=== PATIENT | female | born 1945 | race Caucasian/White ===

== ENCOUNTER 2020-05-10 02:59 | Inpatient (IN) | payer MEDICARE, OTHER ==
[2020-05-10] VITALS (10 sets, daily range): BP systolic 109–149; BP diastolic 62–111; PULSE 68–140; TEMP 97.5–99
[~2020-05-10] VITALS: Ht 162.6 cm; Wt 72.7 kg
[~2020-05-10 02:59] MED LIST: CLINDAMYCIN300 MG PO; NO HOME MEDICATIONS
[2020-05-10 03:26] LABS: BASO # 0.1 (0.0-0.2); BASO % 1.4 % (0.0-2.0); EOS # 0.3 (0.0-0.7); EOS % 3.7 % (0-4.0); GRAN # 4.5 (1.4-6.5); GRAN % 61.2 % (42.2-75.2); HEMATOCRIT 43.3 % (37.0-47.0); HEMOGLOBIN 14.4 g/dl (12.5-16.0); LYMPH % 26.4 % (20.0-51.0); MEAN CELL VOLUME 98 fl (80.0-100.0); MEAN CORPUSCULAR HEMOGLOBIN 33 pg (27.0-31.0); MEAN CORPUSCULAR HGB CONC 33 g/dl (33.0-37.0); MEAN PLATELET VOLUME 11.1 fl (7.4-10.4); MONO # 0.5 (0.1-0.6); MONO % 6.9 % (1.7-9.3); PLATELET COUNT 174 K/mm3 (130-400); RED BLOOD COUNT 4.42 M/mm3 (4.10-5.30); REDCELL DISTRIBUTION WIDTH-CV 13.9 % (11.5-14.5)
[2020-05-10] MEDS ORDERED: FENTANYL 50MCG TD (03:26)
[2020-05-10 03:40] LABS: ALBUMIN 4.1 gm/dL (3.5-5.0); BILIRUBIN,TOTAL 0.6 mg/dL (0.0-1.0); CALCIUM 8.4 mg/dL (8.4-10.2); CREATININE, serum 0.73 (0.52-1.25); POTASSIUM 3.6 mmol/L (3.4-5.0); TOTAL PROTEIN 6.5 gm/dL (6.4-8.2)
[2020-05-10 03:50] LABS: INR 0.9 (0.8-3.0); PROTHROMBIN TIME 10.1 SECONDS (9.7-12.8)
[2020-05-10] MEDS ORDERED: LOMOTIL 0.025 M1 TAB PO (05:56)
[2020-05-10 06:24] LABS: MAGNESIUM 2.1 mg/dL (1.6-2.3)
[2020-05-10 06:30] LABS: PRE ALBUMIN 23.6 mg/dL (17.6-36.0)
--- NOTE | 2020-05-10 07:33 | NUR ---
NOTIFIED OF ORTHO CONSULT.
--- NOTE | 2020-05-10 12:00 | NUR ---
BLOOD SUGAR CHECKED DUE TO IVF RUNNING AT 200ML/HR WITH DEXTROSE 5% WITH 0.45% NS. RATE DECREASED TO 75ML/HR PER ORDERS. BLOOD GLUCOSE CHECKED, BS:171. NOTIFIED. IVF ORDERS CHANGED.
--- NOTE | 2020-05-10 12:12 | NUR ---
TELEMETRY CALLED AND REPORTED THAT THE PATIENT CONVERTED INTO NORMAL SINUS RHYTHM.
--- NOTE | 2020-05-10 13:40 | NUR ---
16 UKRAINIAN BARR CATHETER INSERTED VIA STERILE TECHNIQUE. 10ML BALLOON INFLATED. STAT LOCK TO LEFT THIGH. APPROXIMATELY 350MLS OF BLOOD-TINGED, YELLOW RETURNED IMMEDIATELY. URINE SPECIMEN COLLECTED AND SENT TO LAB.
[2020-05-10 13:51] LABS: COLLECTION METHOD CLEAN CATCH
[2020-05-10 14:21] LABS: TRICYCLIC ANTIDEPRESS URINE NEGATIVE
[2020-05-10 14:27] LABS: MUCOUS Present /lpf; PH 5 (5-8); SQUAMOUS EPITHELIAL None Seen /hpf; URINE APPEARANCE Hazy; URINE BACTERIA None Seen /hpf; URINE BILIRUBIN Negative (NEGATIVE); URINE BLOOD 2+ (NEGATIVE); URINE CALCIUM OXALATE CRYSTAL Present /hpf; URINE COLOR Yellow; URINE GLUCOSE Negative (NEGATIVE); URINE KETONE 1+ (NEGATIVE); URINE LEUKOCYTE ESTERASE Negative (NEGATIVE); URINE NITRATE Negative (NEGATIVE); URINE PROTEIN(semi-quant) Negative (NEGATIVE)
--- NOTE | 2020-05-10 14:27 | NUR ---
Dispatch Manager met with the patient to complete intake. The patient lives in [place] with her daughter, Brinda. The patient moved to [place] in January from [place], [place]. The patient has two walkers and is independent. The patient's PCP is listed as Dr. Rebolledo but the patient states she has not yet seen him. The patient receives medications via mail from [email or web address] or [employer]. The patient does not have advanced directives in the EMR but they are complete. The patient's daughter Brinda emailed copy and placed in the chart. The patient will likely be needing post acute rehab at discharge. KIM discussed Medicare.gov options for SNF in [place]. The first choice is [facility] and second choice is [facility]. Referrals sent and facilities notified. KIM contacted Brinda and she was in agreeance with the plan. KIM collaborated the above information with the patient's nurse.
--- NOTE | 2020-05-10 17:03 | NUR ---
LEONARD OHARA CALLED AND NOTIFIED THAT THE PATIENT IS BACK IN A.FIB IN THE 130'S. NO ORDERS GIVEN AT THIS TIME.
--- NOTE | 2020-05-10 18:32 | NUR ---
PATIENT PROVIDED WITH PRN IV PAIN MEDICATIONS AND IV ATIVAN FOR DETOX PER PROTOCOL. PATIENT REFUSING EWELINA HOSE AND SCD'S. PATIENT ALLOWS FOR SOME INTERMITTENT REPOSITIONING THROUGHOUT THE DAY. PATIENT CURRENTLY RESTING IN BED AT THIS TIME. BARR TO DEPENDENT DRAINAGE. WILL REPORT OFF TO ONCOMING NURSE.
[2020-05-10] MEDS ORDERED: B-121000 MCG PO (19:50)
[2020-05-10] MEDS ORDERED: THERAGRAN TAB1 UDTAB PO (19:50)
[2020-05-10] MEDS ORDERED: VITAMIN D 400400 IU PO (19:51)
--- NOTE | 2020-05-10 20:00 | NUR ---
Report received, assumed care for mini shifter. Assessment complete. A&O to self-knows is currently in hospital but unaware of where or time frame. Very uncooperative with positioning-will not allow pillow support for right lower extremity-refused SCDs/TEDs/Ice. Rivas cath with clear yellow urine. 1/2NS@75mls/hr to right forearm IV. Detox protocol with evaluation q2h. Denies current needs. Call light in reach. Bed alarm on. Will monitor.
--- NOTE | 2020-05-10 20:02 | NUR ---
certified technician specialist notified this nurse of elevated HR-currently in A FIB. Vitals WNL. Denies chest pain/shortness of breath. Received ativan and pain meds at 1915. Hospitalist notified-no new orders received.
--- NOTE | 2020-05-10 20:15 | NUR ---
PATIENT ADMISSION INFORMATION, MED REC, ALLERGIES AND PHARMACY REVIEWED WITH PATIENTS DAUGHTER AND DPOA.
[2020-05-11] VITALS (196 sets, daily range): BP systolic 76–125; BP diastolic 50–78; PULSE 36–108; TEMP 97.8–98.8; O2SAT 88–98
--- NOTE | 2020-05-11 04:00 | NUR ---
During detox protocol vitals patient will cry out "it hurts it hurst" but immediately falls back to sleep. Did allow for some repositioning with pillow support but refused ice. Call light in reach/bed alarm on. Will monitor.
--- NOTE | 2020-05-11 05:00 | NUR ---
Rested well after IV medication for pain. Did receive ativan for detox protocol-scoring 5-8. Rivas cath draining dark yellow clear urine. 1/2NS@75ml/hr to right forearm IV. Has been NPO since midnight. Call light in reach. Will monitor.
[2020-05-11 06:41] LABS: BASO # 0.1 (0.0-0.2); BASO % 0.4 % (0.0-2.0); EOS # 0.1 (0.0-0.7); EOS % 0.6 % (0-4.0); GRAN # 8.3 (1.4-6.5); GRAN % 71.5 % (42.2-75.2); LYMPH # 2.1 (1.2-3.4); LYMPH % 17.6 % (20.0-51.0); MEAN CELL VOLUME 98 fl (80.0-100.0); MEAN CORPUSCULAR HGB CONC 34 g/dl (33.0-37.0); MONO # 1.1 (0.1-0.6); MONO % 9.1 % (1.7-9.3); PLATELET COUNT 139 K/mm3 (130-400); RED BLOOD COUNT 3.66 M/mm3 (4.10-5.30); REDCELL DISTRIBUTION WIDTH-CV 13.4 % (11.5-14.5)
[2020-05-11 06:49] LABS: HEMATOCRIT 35.9 % (37.0-47.0); MEAN CORPUSCULAR HEMOGLOBIN 33 pg (27.0-31.0)
[2020-05-11 06:50] LABS: HEMOGLOBIN 12.1 g/dl (12.5-16.0)
--- NOTE | 2020-05-11 06:55 | NUR ---
appears to be dozing, bedside shift report recevied from Oksana RN
[2020-05-11 06:56] LABS: ALBUMIN 3.4 gm/dL (3.5-5.0); BILIRUBIN,TOTAL 1.8 mg/dL (0.0-1.0); CALCIUM 8.2 mg/dL (8.4-10.2); CREATININE, serum 0.53 (0.52-1.25); POTASSIUM 3.7 mmol/L (3.4-5.0); TOTAL PROTEIN 5.6 gm/dL (6.4-8.2)
--- NOTE | 2020-05-11 08:20 | NUR ---
c/o pain medicated with dilaudid 0.25mg slow IV
--- NOTE | 2020-05-11 09:32 | NUR ---
appears more comfortable since given dilaudid, full assessment completed, see interventions for further info, awakens easily but goes back to sleep quickly
--- NOTE | 2020-05-11 10:30 | NUR ---
preop bath given, c/o and medicated with dilaudid 0/25mg slow IV, rests well after dilaudid given
--- NOTE | 2020-05-11 11:24 | NUR ---
consent signed for surgery, prepped for surgery,
--- NOTE | 2020-05-11 11:40 | NUR ---
to surgery per bed, report called to TISHA Saha
--- NOTE | 2020-05-11 12:00 | NUR ---
spoke with daughter Brinda and informed her the patient just went to surgery and she is in agreement with this,
[2020-05-11 12:41] LABS: CREATININE, serum 0.67 (0.52-1.25); POTASSIUM 4.5 mmol/L (3.4-5.0)
--- NOTE | 2020-05-11 12:52 | NUR ---
settlement technician called to report patient's heart rate in the high 30s to low 40s, informed her the patient was in surgery, I then called the charge nurse in surgery and informed her, she states the WASHER AND CRUSHER TENDER and other nurse is with the patient at this time
--- NOTE | 2020-05-11 13:23 | NUR ---
LEONARD Buchanan and Dr Collazo notified of patient's heart rate in the 30s and they have taken her back to surgery, given phone number of surgery charge nurse if they have questions
--- NOTE | 2020-05-11 16:25 | NUR ---
she remains off unit in surgery/pacu
--- NOTE | 2020-05-11 16:30 | NUR ---
Patient arrives to icu room 3 from pacu. She wakes to movement and to her name. she complains of brief discomfort when moved to icu bed.bp wnl. hr melissa in 30s.
--- NOTE | 2020-05-11 16:50 | NUR ---
report given to MARY Cristina in ICU
--- NOTE | 2020-05-11 17:15 | NUR ---
Update given to daughter, Brinda.
--- NOTE | 2020-05-11 19:30 | NUR ---
Report given to MARY Saha
--- NOTE | 2020-05-11 20:00 | NUR ---
Discussed patient's care with patient's daughter. Daughter is upset that no physician has updated her on her mothers condition. She was also not notified that her mother had been transfered down to the unit. Requested that the barrel loader speak with her tomorrow about the plan of care. Ensured that we had her number and will pass it on to the day shift nurse. Daughter was pleased with current care plan at this time. Also reported that [place] is listed as an allergy for her mom and causes "nausea" Daughter stated that she took norco over 20 yrs ago and it was just not effective, but did not cause any adverse reactions. . Has a current order for norco and requested that we try that if patient is ok with it. All other questions and concerns addressed at this time.
--- NOTE | 2020-05-11 20:00 | NUR ---
Patient crying outloud and moaning frequently saying "ow ow ow" and it hurts, while holding her right hip. PRN pain medication administered.
--- NOTE | 2020-05-11 23:08 | NUR ---
Resting comfortably at this time. VS stable. Call light within reach; Will continue to monitor.
[2020-05-12] VITALS (282 sets, daily range): BP systolic 96–128; BP diastolic 52–75; PULSE 56–77; TEMP 97.1–98.2; O2SAT 56–100
[2020-05-12 00:40] LABS: CALCIUM 8.1 mg/dL (8.4-10.2); CREATININE, serum 0.77 (0.52-1.25); POTASSIUM 4.4 mmol/L (3.4-5.0)
--- NOTE | 2020-05-12 05:10 | NUR ---
Patient resting in bed; RT at bedside to perfrom ECG. 02 89 on 4L oxymask. Instructed patient to try to remember to take a several good deep breaths and cough several times an hour to help prevent pneumonia. Patient agreeable with this. 02 increased to 6L at this time.
[2020-05-12 05:23] LABS: BASO % 0.1 % (0.0-2.0); GRAN # 7.3 (1.4-6.5); GRAN % 84.8 % (42.2-75.2); LYMPH # 0.8 (1.2-3.4); LYMPH % 9.6 % (20.0-51.0); MEAN CELL VOLUME 99 fl (80.0-100.0); MEAN CORPUSCULAR HGB CONC 33 g/dl (33.0-37.0); MEAN PLATELET VOLUME 12.7 fl (7.4-10.4); MONO # 0.4 (0.1-0.6); MONO % 4.6 % (1.7-9.3); PLATELET COUNT 98 K/mm3 (130-400); RED BLOOD COUNT 2.95 M/mm3 (4.10-5.30); REDCELL DISTRIBUTION WIDTH-CV 13.6 % (11.5-14.5)
[2020-05-12 05:25] LABS: HEMATOCRIT 29.2 % (37.0-47.0); HEMOGLOBIN 9.7 g/dl (12.5-16.0); MEAN CORPUSCULAR HEMOGLOBIN 33 pg (27.0-31.0)
[2020-05-12 05:37] LABS: ALBUMIN 2.8 gm/dL (3.5-5.0); CREATININE, serum 0.7 (0.52-1.25); POTASSIUM 4.1 mmol/L (3.4-5.0); TOTAL PROTEIN 5.1 gm/dL (6.4-8.2)
--- NOTE | 2020-05-12 11:25 | NUR ---
The patient was transferred to ICU after surgery yesterday. The patient is to transfer back up to the surgical floor today. KIM contacted and updated the patient's daughter, Siobhan. Siobhan is agreeable to the d/c plan of post-acute rehab and [facility]. KIM discussed Medicaid. Siobhan reports that she would be interested in getting the patient applied for Medicaid while she is here. KIM consulted Financial Counselor, Garima. KIM contacted and faxed updates to Deena at [facility].
--- NOTE | 2020-05-12 16:22 | NUR ---
A Medicaid application was completed. Garima, Financial Counselor, reports that she needs Release of Information Forms signed. KIM met with the patient and presented the forms. The patient signed the forms and SW emailed the signed forms back to Financial Counseling.
--- NOTE | 2020-05-12 18:41 | NUR ---
RECEIVED CHANGE OF SHIFT REPORT FROM DAY SHIFT NURSE.
--- NOTE | 2020-05-12 21:40 | NUR ---
PATIENT STILL COMPLAINING OF RIGHT HIP AFTER TAKING PAIN PILL WHILE BEING TURNED FOR INCONTINENT CARE WITH LOOSE STOOL, SEE eMAR FOR MS GIVEN IV.
[2020-05-13 03:26] VITALS: BP 104/58; PULSE 70; TEMP 98.2
--- NOTE | 2020-05-13 05:42 | NUR ---
PATIENT PLACED AND TAKEN OFF BED PAIN, PASSED FLATUS. PATIENT ABLE TO TURN ONTO TO RIGHT SIDE WHEN PATIENT TURNS ONTO SIDE HERSELF.
--- NOTE | 2020-05-13 07:20 | NUR ---
awake resting in bed, bedside shift report received from MARY Miller, placed on bedpan per her request to have a bowel movement
[2020-05-13 07:57] LABS: MEAN CELL VOLUME 98 fl (80.0-100.0); MEAN CORPUSCULAR HGB CONC 33 g/dl (33.0-37.0); MEAN PLATELET VOLUME 13.1 fl (7.4-10.4); PLATELET COUNT 136 K/mm3 (130-400); RED BLOOD COUNT 2.98 M/mm3 (4.10-5.30); REDCELL DISTRIBUTION WIDTH-CV 13.8 % (11.5-14.5)
[2020-05-13 08:00] LABS: BILIRUBIN,TOTAL 0.7 mg/dL (0.0-1.0); CALCIUM 8.3 mg/dL (8.4-10.2); CREATININE, serum 0.68 (0.52-1.25); MAGNESIUM 2.1 mg/dL (1.6-2.3); POTASSIUM 4.3 mmol/L (3.4-5.0); TOTAL PROTEIN 5.4 gm/dL (6.4-8.2)
[2020-05-13 08:04] LABS: HEMATOCRIT 29.3 % (37.0-47.0); HEMOGLOBIN 9.6 g/dl (12.5-16.0); MEAN CORPUSCULAR HEMOGLOBIN 32 pg (27.0-31.0)
[2020-05-13 08:10] VITALS: BP 122/61; PULSE 66; TEMP 97.7
[2020-05-13 08:21] LABS: LYMPHOCYTE 7 % (20.0-51.0); NEUTROPHILS 89 % (42.0-75.2); PLATELET ESTIMATE NORMAL (NORMAL); SCHISTOCYTES 1+
[2020-05-13 08:22] LABS: HYPOCHROMIA 1+
--- NOTE | 2020-05-13 09:26 | NUR ---
Patient refused her nicotine patch. States she does not care for them. Resting in bed watching tv with call light in reach for use. Able to make needs and wishes known. Denies need for anything at this time.
[2020-05-13 10:30] VITALS: BP 128/66; PULSE 61; TEMP 97.5
--- NOTE | 2020-05-13 11:15 | NUR ---
physical therapy in to work with patient and assisted out of bed and up into recliner
--- NOTE | 2020-05-13 11:28 | NUR ---
Deena from [facility] reports they can accept the patient for post acute rehab. Deena wanted to ensure the patient was able to void after amezcua get taken out. KIM staffed with nurse regarding the above. Nurse states that the patient started Sotalol this day and will need to stay for monitoring for three days. KIM informed Deena and faxed updates.
--- NOTE | 2020-05-13 13:08 | NUR ---
Patients indwelling catheter DC at 1015. Denies need for anything at this timew. Call light in reach for use.
--- NOTE | 2020-05-13 13:21 | NUR ---
bedside shift report given to MARY Marroquin
[2020-05-13 15:33] VITALS: BP 118/68; PULSE 59; TEMP 98.7
--- NOTE | 2020-05-13 18:25 | NUR ---
Patient c/o pain to her right hip 12/17. PRN [place] given at 14:52 pm for pain. Patient has been using bed guerra x2 to void this afternoon. Patient's daughter in the room around 1800. Update provided to patient's daughter. All the questions answered and concerns addressed. Will give report to warehouse shift supervisor nurse.
[2020-05-13 19:37] VITALS: BP 112/58; PULSE 58; TEMP 98.5
--- NOTE | 2020-05-13 21:20 | NUR ---
HS MEDS GIVEN WITH NORCO 2 TABS PO FOR PAIN 12/17. PT USING BEDPAN FOR VOIDING AND STOOL. IS ALERT, CRANKY AT STAFF. SL TO LEFT HAND FLUSHED WITHOUT PROBLEM.
[2020-05-14 00:22] VITALS: BP 11/50; BP 111/50; PULSE 58; TEMP 98.1
--- NOTE | 2020-05-14 01:38 | NUR ---
PT REPORTS PAIN 9/10 TO RIGHT HIP. MEDICATED WITH NORCO 5/325 (2) TABS PO AT THIS TIME WITH TRAMADOL 100MG PO.
[2020-05-14 04:35] VITALS: BP 119/58; PULSE 80; TEMP 97.6
--- NOTE | 2020-05-14 05:09 | NUR ---
MEDICATED WITH LOMOTIL FOR DIARRHEA AND NORCO 2 TABS PO FOR PAIN TO RIGHT HIP. PT ASKING FOR FENTANYL PATCH, ANAND LOCK CONTACTED, SHE REFERRED TO DAYSHIFT DOCTORS.
[2020-05-14 06:55] LABS: BASO % 0.1 % (0.0-2.0); EOS % 0.2 % (0-4.0); GRAN # 9.8 (1.4-6.5); GRAN % 73.7 % (42.2-75.2); LYMPH # 2.2 (1.2-3.4); LYMPH % 16.4 % (20.0-51.0); MEAN CELL VOLUME 100 fl (80.0-100.0); MEAN CORPUSCULAR HGB CONC 32 g/dl (33.0-37.0); MEAN PLATELET VOLUME 12.3 fl (7.4-10.4); MONO # 1.1 (0.1-0.6); MONO % 8.4 % (1.7-9.3); PLATELET COUNT 168 K/mm3 (130-400); RED BLOOD COUNT 2.87 M/mm3 (4.10-5.30)
[2020-05-14 07:02] LABS: HEMATOCRIT 28.6 % (37.0-47.0); HEMOGLOBIN 9.2 g/dl (12.5-16.0); MEAN CORPUSCULAR HEMOGLOBIN 32 pg (27.0-31.0)
[2020-05-14 07:02] LABS: CALCIUM 8.3 mg/dL (8.4-10.2); CREATININE, serum 0.8 (0.52-1.25); POTASSIUM 3.8 mmol/L (3.4-5.0)
[2020-05-14] MEDS ORDERED: NICODERM C21 MG/PATC TD (07:22)
[2020-05-14] MEDS ORDERED: XARELTO15 MG PO (07:23)
[2020-05-14] MEDS ORDERED: TYLENOL 325MG325 MG PO (07:23)
[2020-05-14] MEDS ORDERED: VITAMIN C500 MG PO (07:24)
[2020-05-14] MEDS ORDERED: THIAMINE 1100 MG/TAB PO (07:24)
[2020-05-14] MEDS ORDERED: SENOKOT S 50 MG1 TAB PO (07:24)
[2020-05-14] MEDS ORDERED: OSCAL 500 TAB500 MG PO (07:24)
[2020-05-14] MEDS ORDERED: FOLIC ACID 11 MG/TA1 PO (07:24)
--- NOTE | 2020-05-14 08:12 | NUR ---
Patient resting in bed. Awake & alert. She states she absolutely will not be doing therapy today because she did not sleep last night. I touched base with Chanel Veronica about patient requesting her fentynal patch. I reviewed with patient that is a very controlled substance, physicans have to research what is best pain medication for her prior to giving that. Patient on potassium protocol, refuses K+ in orange juice reports she is allergic to fruits and vegtables. Student nurse assisting in care. Patient wanting staff to know her name is NAHUN BRIZUELA. NOT NAHUN & NOT CHATA. Ekg done this am Qtc less that 500. Vss, coughing & deep breathing encouraged. Right hip dressing CDI. Ortho rounded this am
[2020-05-14 08:42] VITALS: BP 125/58; PULSE 56; TEMP 97.9
--- NOTE | 2020-05-14 09:29 | NUR ---
Hospitalist rounded. Plan of care reviewed. Patient is very hard of hearing making communication difficult at times. Fentynal patch per orders resumed. Patient thankful
[2020-05-14] MEDS ORDERED: BETAPACE 80MG80 MG PO (11:54)
[2020-05-14 12:15] VITALS: BP 131/58; PULSE 68; TEMP 98
--- NOTE | 2020-05-14 13:33 | NUR ---
Patient resting in bed watching tv. Able to make needs and wishes known. Denies need for anything at this time. call light in reach for use.
[2020-05-14 13:53] VITALS: BP 131/58; PULSE 68; TEMP 98
[2020-05-14] MEDS ORDERED: NORCO 325 MG-51 TAB PO (13:56)
[2020-05-14] MEDS ORDERED: FERROUS SU325 MG/TAB PO (13:57)
[2020-05-14] MEDS ORDERED: FENTANYL 50MCG TD (13:58)
--- NOTE | 2020-05-14 14:28 | NUR ---
Patient ready for discharge. Patient dressed in fresh hospital clothing & hygiene provided. Patient was up to bedside commode & had a loose Bm & voided. Patient daughter aware of plan of care, social service manager talked to her. Patietn belongings packed.
--- NOTE | 2020-05-14 15:04 | NUR ---
PATIENT TRANSFERED TO [facility]. REPORT CALLED TO NURSE AT [facility], ALL QUESTIONS ANSWERED.
--- NOTE | 2020-05-14 16:08 | NUR ---
Cardiology cleared the patient for discharge. The patient discharged today, 05/14 to [facility] for post acute rehab. Discharge orders faxed. The patient, team, and the patient's daughter were in agreeance. The patient will be transported at 1430. There are no additional needs.
== END 2020-05-14 15:05 | DRG 480 ==
LOC: COL.ER 02:59 → SURG 03:58 → ICU 03:58 → SURG 03:59 → ICU 05-11 16:30 → SURG 05-12 18:30
PROVIDERS: Emergency Medicine; Family Medicine; Nurse Practitioner Family; Orthopaedic Surgery; Physician Assistant; ADMIT Internal Medicine
PROC: 0QS60ZZ Reposition Right Upper Femur, Open Approach (ICD-10-PCS; principal; 2020-05-11 14:45)
DX: S72.141A Displaced intertrochanteric fracture of right femur, initial encounter for closed fracture (principal); J96.01 Acute respiratory failure with hypoxia; E87.1 Hypo-osmolality and hyponatremia; I48.91 Unspecified atrial fibrillation; I95.81 Postprocedural hypotension; J44.9 Chronic obstructive pulmonary disease, unspecified; D64.9 Anemia, unspecified; F10.129 Alcohol abuse with intoxication, unspecified; T44.7X5A Adverse effect of beta-adrenoreceptor antagonists, initial encounter; T46.1X5A Adverse effect of calcium-channel blockers, initial encounter; R00.1 Bradycardia, unspecified; R74.01 Elevation of levels of liver transaminase levels; Z20.828 Contact with and (suspected) exposure to other viral communicable diseases; G89.29 Other chronic pain; M54.9 Dorsalgia, unspecified; F17.210 Nicotine dependence, cigarettes, uncomplicated; Z90.710 Acquired absence of both cervix and uterus; Z85.41 Personal history of malignant neoplasm of cervix uteri
CPT/HCPCS: 99223-AI; 99232-AI; 99233-AI; 99239; A9284; C1713; C1769; J0690; J1100; J1170; J1650; J2060; J2250; J2270; J2405; J2704; J3010; J3411; J3480; J7030; J7512

== ENCOUNTER → 2020-05-24 | Outpatient (REF) ==
[~2020-05-24] MED LIST changes: +B-121000 MCG PO; +BETAPACE 80MG80 MG PO; +FENTANYL 50MCG TD; +FERROUS SU325 MG/TAB PO; +FOLIC ACID 11 MG/TA1 PO; +LOMOTIL 0.025 M1 TAB PO; +NICODERM C21 MG/PATC TD; +NORCO 325 MG-51 TAB PO; +OSCAL 500 TAB500 MG PO; +SENOKOT S 50 MG1 TAB PO; +THERAGRAN TAB1 UDTAB PO; +THIAMINE 1100 MG/TAB PO; +TYLENOL 325MG325 MG PO; +VITAMIN C500 MG PO; +VITAMIN D 400400 IU PO; +XARELTO15 MG PO
[2020-05-24 10:37] LABS: BASO # 0.1 (0.0-0.2); BASO % 0.7 % (0.0-2.0); EOS # 0.2 (0.0-0.7); EOS % 1.7 % (0-4.0); GRAN # 7.9 (1.4-6.5); GRAN % 72.5 % (42.2-75.2); HEMOGLOBIN 10.3 g/dl (12.5-16.0); LYMPH # 1.8 (1.2-3.4); LYMPH % 16.1 % (20.0-51.0); MEAN CELL VOLUME 101 fl (80.0-100.0); MEAN CORPUSCULAR HEMOGLOBIN 32 pg (27.0-31.0); MEAN CORPUSCULAR HGB CONC 32 g/dl (33.0-37.0); MEAN PLATELET VOLUME 10.2 fl (7.4-10.4); MONO # 0.9 (0.1-0.6); MONO % 8.3 % (1.7-9.3); PLATELET COUNT 593 K/mm3 (130-400); RED BLOOD COUNT 3.23 M/mm3 (4.10-5.30); REDCELL DISTRIBUTION WIDTH-CV 15.2 % (11.5-14.5)
[2020-05-24 10:39] LABS: HEMATOCRIT 32.6 % (37.0-47.0)
[2020-05-24 10:40] LABS: CALCIUM 9.5 mg/dL (8.4-10.2); CREATININE, serum 0.64 (0.52-1.25); POTASSIUM 4.3 mmol/L (3.4-5.0)
== END ==
LOC: ZCOL.LAB 10:08
PROVIDERS: Internal Medicine
DX: Z51.89 Encounter for other specified aftercare (principal); R79.89 Other specified abnormal findings of blood chemistry; R68.89 Other general symptoms and signs

== ENCOUNTER 2020-05-31 20:40 | Emergency (ER) | payer MEDICARE, MEDICAID ==
[~2020-05-31] VITALS: Ht 162.6 cm; Wt 63.6 kg
[2020-05-31] MEDS ORDERED: ASPIRIN 32325 MG/TAB PO (23:09)
[2020-06-01 01:19] VITALS: BP 141/88; PULSE 105
== END 2020-06-01 02:20 | disposition home or self-care (01) ==
LOC: COL.ER 20:40
DX: G89.18 Other acute postprocedural pain (principal); I48.0 Paroxysmal atrial fibrillation; F17.210 Nicotine dependence, cigarettes, uncomplicated; Z79.01 Long term (current) use of anticoagulants; Z88.6 Allergy status to analgesic agent; Z79.82 Long term (current) use of aspirin

== ENCOUNTER → 2021-11-30 | Outpatient (CLI) | payer MEDICARE ==
[~2021-11-30] MED LIST changes: +ASPIRIN 32325 MG/TAB PO
== END ==
LOC: COL.RAD 14:36
DX: M47.816 Spondylosis without myelopathy or radiculopathy, lumbar region (principal); M16.11 Unilateral primary osteoarthritis, right hip; Z87.81 Personal history of (healed) traumatic fracture

== ENCOUNTER → 2021-11-30 | Outpatient (CLI) | payer MEDICARE | LOC: MHCPAIN 12:28 | DX: M54.50 Low back pain, unspecified (principal); M51.36 Other intervertebral disc degeneration, lumbar region; M25.551 Pain in right hip; M79.2 Neuralgia and neuritis, unspecified; Z87.81 Personal history of (healed) traumatic fracture | CPT/HCPCS: G0463 ==

== ENCOUNTER → 2021-12-21 | Outpatient (CLI) | payer MEDICARE | LOC: MHCPAIN 13:17 | DX: M51.36 Other intervertebral disc degeneration, lumbar region (principal); M54.59 Other low back pain; Z87.81 Personal history of (healed) traumatic fracture; M79.2 Neuralgia and neuritis, unspecified | CPT/HCPCS: G0463 ==

== ENCOUNTER → 2022-03-31 | Outpatient (CLI) | payer MEDICARE ==
[~2022-03-31] MED LIST changes: +BETAPACE AF80 MG/TA1 PO; +NATURE'S BLEND100 M2 PO
== END ==
LOC: MHCPAIN 12:53
DX: M70.61 Trochanteric bursitis, right hip (principal); Z87.81 Personal history of (healed) traumatic fracture
CPT/HCPCS: J3301

== ENCOUNTER → 2022-06-01 | Outpatient (CLI) | payer MEDICARE ==
[~2022-06-01] VITALS: Ht 162.6 cm; Wt 77.1 kg
[~2022-06-01] MED LIST changes: +MOTRIN 200200 MG/TAB PO; +ZYRTEC 10MG10 MG PO
[2022-06-01 09:11] VITALS: BP 135/85; PULSE 80; TEMP 98.2
[2022-06-01 10:15] VITALS: BP 132/88; PULSE 66
== END ==
LOC: COL.RAD 08:25
DX: M47.816 Spondylosis without myelopathy or radiculopathy, lumbar region (principal); M48.061 Spinal stenosis, lumbar region without neurogenic claudication
CPT/HCPCS: J2250; J2704; J3010

== ENCOUNTER → 2022-06-08 | Outpatient (CLI) | payer MEDICARE | LOC: MHCPAIN 09:37 | DX: M48.061 Spinal stenosis, lumbar region without neurogenic claudication (principal); M25.551 Pain in right hip; M54.31 Sciatica, right side; M54.50 Low back pain, unspecified; M79.18 Myalgia, other site; M47.816 Spondylosis without myelopathy or radiculopathy, lumbar region | CPT/HCPCS: G0463 ==

== ENCOUNTER → 2022-06-15 | Outpatient (CLI) | payer MEDICARE | LOC: MHCPAIN 10:36 | DX: M54.31 Sciatica, right side (principal); M79.18 Myalgia, other site | CPT/HCPCS: J3301 ==

== ENCOUNTER → 2023-06-26 | Outpatient (REF) | payer MEDICARE ==
[~2023-06-26] MED LIST changes: +ADVIL200 MG PO; +ASPIRIN E.C. 8181 MG PO; +BLUE-EMU LIDOC1 EACH TP; +DUO-KAPS1 CAP PO; +FENTANYL 12MCG TD; +LIPITOR20 MG PO; +PAMELOR 25MG25 MG PO; +TOPROL XL 25MG25 MG PO; +TRIAMC 0.1 454 TOP; +TYLENOL 500MG500 MG PO; +XYZAL5 MG PO
[2023-06-26 12:13] LABS: BASO # 0.1 K/mm3 (0.0-0.2); BASO % 1.1 % (0.0-2.0); CALCIUM 7.6 mg/dL (8.4-10.2); CREATININE, serum 0.77 mg/dL (0.57-1.11); EOS # 0.3 K/mm3 (0.0-0.7); EOS % 3.2 % (0.0-4.0); GRAN # 5.2 K/mm3 (1.4-6.5); GRAN % 64.3 % (42.2-75.2); HEMOGLOBIN 10.6 g/dl (12.5-16.0); LYMPH # 1.5 K/mm3 (1.2-3.4); LYMPH % 18.8 % (20.0-51.0); MEAN CELL VOLUME 97 fl (80.0-100.0); MEAN CORPUSCULAR HEMOGLOBIN 32 pg (27-31); MEAN CORPUSCULAR HGB CONC 33 g/dl (33.0-37.0); MEAN PLATELET VOLUME 11.9 fl (7.4-10.4); PLATELET COUNT 446 K/mm3 (130-400); POTASSIUM 3.5 mmol/L (3.5-4.5); RED BLOOD COUNT 3.37 M/mm3 (4.10-5.30); REDCELL DISTRIBUTION WIDTH-CV 15.8 % (11.5-14.5)
[2023-06-26 12:14] LABS: HEMATOCRIT 32.6 % (37.0-47.0)
== END ==
LOC: ZCOL.LAB 11:00
PROVIDERS: Internal Medicine
DX: N39.0 Urinary tract infection, site not specified (principal)

== ENCOUNTER → 2023-08-16 | Outpatient (CLI) | payer MEDICARE | LOC: MHCPAIN 13:00 | DX: M25.551 Pain in right hip (principal); M54.50 Low back pain, unspecified; M48.061 Spinal stenosis, lumbar region without neurogenic claudication; M47.816 Spondylosis without myelopathy or radiculopathy, lumbar region | CPT/HCPCS: G0463 ==

== ENCOUNTER → 2023-09-26 | Outpatient (REF) | payer MEDICARE, MEDICAID | LOC: ZMSC 08:44 | DX: Z02.83 Encounter for blood-alcohol and blood-drug test (principal) ==

== ENCOUNTER → 2023-11-15 | Outpatient (CLI) | payer MEDICARE, MEDICAID | LOC: MHCPAIN 09:25 | DX: M54.50 Low back pain, unspecified (principal); M25.551 Pain in right hip; M48.061 Spinal stenosis, lumbar region without neurogenic claudication; M47.816 Spondylosis without myelopathy or radiculopathy, lumbar region; M79.2 Neuralgia and neuritis, unspecified | CPT/HCPCS: G0463 ==